=== PATIENT | male | born 2000 | race Caucasian/White ===

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

== ENCOUNTER 2022-02-07 03:11 | Emergency (ER) | payer OTHER ==
[~2022-02-07 03:11] MED LIST changes: +LODINE CAP 300300 MG PO; +PROVENTIL HFA6.7 GM INH
[2022-02-07 04:38] LABS: HEMOGLOBIN 13.9 gm/dl (14.0-17.5); RED BLOOD COUNT 4.74 M/UL (4.20-5.50)
[2022-02-07 05:09] LABS: BUN/CREATININE RATIO 18 (0-10)
== END 2022-02-07 05:40 | disposition home or self-care (01) ==
LOC: ER1 03:11
PROVIDERS: Family Medicine
DX: R20.2 Paresthesia of skin (principal); F17.290 Nicotine dependence, other tobacco product, uncomplicated
CPT/HCPCS: 71046; 80053; 82550; 82553; 84484; 85025; 85379; 93005; 99284

== ENCOUNTER 2022-04-14 05:52 | Emergency (ER) | payer OTHER | END 2022-04-14 07:56 | disposition home or self-care (01) | LOC: ER1 05:52 | DX: S61.412A Laceration without foreign body of left hand, initial encounter (principal); F17.200 Nicotine dependence, unspecified, uncomplicated; Z23 Encounter for immunization; W26.0XXA Contact with knife, initial encounter; Y92.009 Unspecified place in unspecified non-institutional (private) residence as the place of occurrence of the external cause | CPT/HCPCS: 12001; 90471; 90715; 99282 ==